=== PATIENT | female | born 1965 | race Caucasian/White ===

== ENCOUNTER 2017-10-13 05:48 | Observation (INO) | payer OTHER ==
[~2017-10-13] VITALS: Ht 157.5 cm; Wt 61.2 kg
--- NOTE | ~2017-10-13 | EKG ---
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
--- NOTE | ~2017-10-13 | PATH ---
[facility] [place] [address] PATHOLOGY RPT PROCEDURE Name: SHELLZION Room #: 449-I ISABELLE Banks#: [id number] Admission: 10/13/17 Date of : 65 Discharge: 10/14/17 Report #: [id number] Path Case #: [id number] [facility] Accession Number: [id number] . 01 Material submitted: . GALLBLADDER . 01 Clinical history: . Acalculous cholecystitis and cholelithiasis . 02 Diagnosis: Gallbladder, cholecystectomy: - Mild chronic cholecystitis. - Cholesterolosis. (IUV:10/14/2017) QMS/10/14/2017 . 02 Electronically signed: . Martha Sanchez MD, Pathologist NPI- [id number] . 01 Gross description: . Received in formalin labeled "ShellZion gallbladder," is a 4.7 x 3.4 x 0.9 cm, previously opened gallbladder with dark green, shiny serosal surfaces. Opening the gallbladder reveals a green, velvety mucosa with focal areas of bright- yellow highlights and an average wall thickness of 0.1 cm. Calculi are not present (upon filtration of the specimen container and contents ) and no masses are noted grossly. Account Group Supervisor sections from the body and fundus are submitted along the proximal margin cassette A1. (TSD; 10/13/2017) TOB/TOB . 02 Pathologist provided ICD-10: K81.1, K82.4 . 02 CPT . 317646 Performed at: [address], [place], [place] [id number] MD Yan Arredondo MD Phone: [phone] Performed at: [address] [id number] MD Martha Sanchez MD Phone: [phone]
--- NOTE | ~2017-10-13 | H ---
[facility] [place] [address] HISTORY AND PHYSICAL Name: ZION LAKE Room #: 449-I [facility] Mark Banks#: [id number] Admission: 10/13/17 Attend Phys: Pablo Sparks MD Discharge: 10/14/17 Date of : 65 Report #: [id number] THIS REPORT FOR: //name// CC: Pablo Mistry MD DATE OF SERVICE: 10/12/2017 PREOPERATIVE HISTORY AND PHYSICAL: PREOPERATIVE DIAGNOSIS: Acalculous cholecystitis, cholelithiasis. HISTORY OF PRESENT ILLNESS: The patient is a 52-year-old who for about a month has been having abdominal pain, bloating, and increased gas. A couple of weeks ago, the patient had a particularly bad episode. She was out eating at a steak house. Even before she finished, she started having pain in the upper abdomen going to her back. This was associated with bloating. Eventually, she also had diarrhea. The pain is sharp and squeezing in nature. Since two weeks ago, she has had several more episodes. Yesterday, the patient had pain during the night after eating yogurt and bananas. The pain can last up to 4 hours. She has had issues in the past 6 months after eating salads. She has had nausea. No vomiting. No jaundice. No fevers or chills. No family history of gallbladder trouble that she knows of. The patient was seen by Dr. Mistry and ultrasound was done on 10/09/2017. Ultrasound did not show any stones. The patient's common bile duct is normal. The patient was seen by me in the office after the ultrasound was done and the patient was recommended to undergo a HIDA scan. The patient had that done on 10/10/2017. When I reviewed it, there was no report yet, but it had been done. The EF was 28%. I spoke with the patient and she did have reproduction of pain. She is recommended to have gallbladder removed. The patient is here for laparoscopic cholecystectomy. PAST MEDICAL HISTORY: Has a history of psoriasis. History of asthma. The patient denies heart disease, diabetes, high blood pressure, kidney or liver disease, bleeding disorder or blood clot history. PAST SURGICAL HISTORY: [place] tooth in 1985. Ankle timo and wire in 2006. Deviated septum repair in 2006, endometrial ablation in 2012. MEDICATIONS: Symbicort and she is on Enstilar Foam, calcipotriene and Retin-A Micro gel for her psoriasis. ALLERGIES: She does not have any allergies. FAMILY HISTORY: There is stroke on both sides of the family. The father's side, there is breast cancer. Mother's side, there is colon cancer. Father [address] [address] HISTORY AND PHYSICAL Name: ZION LAKE Room #: 449-I ISABELLE Banks#: [id number] Admission: 10/13/17 Attend Phys: Pablo Sparks MD Discharge: 10/14/17 Date of : 65 Report #: [id number] at age 74, had blood clot and also peripheral artery disease. 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 Does not smoke. She drinks 4 beers on weekend. REVIEW OF SYSTEMS: No shortness of breath, chest pain, palpitation. No wheezes. No headache, blurred vision. No weakness, numbness. PHYSICAL EXAMINATION: GENERAL: The patient is well-nourished female, in no acute distress. HEENT: Sclerae is nonicteric. Pupils react to light. Extraocular muscles are intact. NECK: Supple, no masses. LUNGS: Clear to auscultation. No wheezes. HEART: Regular rate and rhythm. No murmur or gallop. ABDOMEN: Soft and there is localized tenderness that is mild to moderate in the right upper quadrant. No mass detected. No guarding or rigidity. EXTREMITIES: No cyanosis, clubbing or edema. IMPRESSION: The patient is a 52-year-old with abdominal pain that is classic gallbladder disease. This has been going on for about a month. She has fairly classic symptom. One episode that occurred while she was eating and all the symptoms are brought on by food. The patient does not have any gallstone on ultrasound. The patient did have a PIPIDA scan that did reproduce her pain. The patient is recommended to have her gallbladder removed. Laparoscopic cholecystectomy was discussed. Risk of bleeding, infection was discussed. Risk of common bile duct injury and bile leak was discussed. The patient understands the procedure and wishes to proceed. By: [id number] Pablo Sparks MD /nt
--- NOTE | ~2017-10-13 | O ---
[facility] [place] [address] OPERATIVE REPORT Name: ZION LAKE Room #: 449-I [facility] Mark Banks#: [id number] Admission: 10/13/17 Attend Phys: Pablo Sparks MD Discharge: 10/14/17 Date of : 65 Report #: [id number] THIS REPORT FOR: //name// CC: Pablo Mistry DATE OF SERVICE: 10/13/2017 PREOPERATIVE DIAGNOSIS: Acalculous cholecystitis with biliary dyskinesia. POSTOPERATIVE DIAGNOSIS: Acalculous cholecystitis with biliary dyskinesia. SURGEON: Pablo Sparks MD ANESTHESIA: General. PROCEDURE PERFORMED: Laparoscopic cholecystectomy with cholangiogram. FINDINGS: There was extensive adhesion surrounding the gallbladder. Cholesterol buildup identified in the gallbladder. Common bile duct is normal on operative cholangiogram. COMPLICATIONS: None. DESCRIPTION OF PROCEDURE: With the patient under general anesthesia, abdomen was prepped and draped in sterile fashion. Antibiotic was administered. Timeout was performed. A 0.25% Marcaine was used to anesthetize the skin infraumbilically. A 2 cm incision was made. The fascia was identified, grasped with hemostat. Fascia was then opened under visualization. A 0 Vicryl suture placed on the fascia for retraction. With the abdominal wall lifted anteriorly, Veress needle was then placed through peritoneum, abdominal cavity was insufflated with CO2. After creating pneumoperitoneum pressure of 15, an 11 mm trocar was placed into the pneumoperitoneum, no harm to the underlying tissue. Two 5 mm trocars were placed in right lower quadrant and a 5 mm trocar placed in right epigastrium. Some adhesions identified in the right colon. The gallbladder was covered by dense adhesion. The adhesions were taken down from the gallbladder. This is likely from chronic inflammation. The proximal gallbladder was then identified. A second grasper was placed on the proximal gallbladder. Peritoneum was dissected free from the gallbladder. The cystic artery and duct was isolated easily. The cystic duct and artery area was quite narrow and it was very easy to open up the triangle of Calot completely. A clip was placed in junction of the cystic duct to the gallbladder. An opening was made in the cystic duct. Cholangiogram catheter was placed. There was some sludgy material, cholesterol material in the cystic duct that I found. Cholangiogram catheter was then placed. There was a little bit of resistance and then the catheter went in. Fluoroscopic cholangiogram was obtained. [address] [address] OPERATIVE REPORT Name: ZION LAKE Room #: 449-I [facility] Mark Banks#: [id number] Admission: 10/13/17 Attend Phys: Pablo Sparks MD Discharge: 10/14/17 Date of : 65 Report #: [id number] bile duct filled out well. No filling defect was seen. The cholangiogram catheter was then removed. The proximal cystic duct was clipped x 2 and then divided. The artery was isolated easily, clipped x 2 proximally and 1 distally and then divided. Gallbladder was freed from the liver bed. Gallbladder was retrieved through the infraumbilical port. The gallbladder did contain extensive cholesterolosis. No other lesions identified. The liver bed was checked, hemostasis was obtained. In the lateral liver bed there was a little bit of bleeding from going a bit too deep in the liver. This was cauterized, hemostasis obtained. This occurred when the gallbladder was taken off. A Surgicel Fibrillar placed over here. No bleeding was identified. Irrigation was aspirated out. Trocars removed under visualization. The patient tolerated the procedure well. By: [id number] Pablo Sparks MD /nt
[~2017-10-13 05:48] MED LIST: MULTIVITAMINS PO; PROBIOTIC1 EAC1 PO
[2017-10-13 12:02] VITALS: BP 139/84
[2017-10-13 12:59] LABS: ALBUMIN 4.1 g/dL (3.4-5.0); DIRECT BILIRUBIN 0.1 mg/dL (<0.1-0.3); TOTAL BILIRUBIN 0.6 mg/dL (<0.1-1.0); TOTAL PROTEIN 6.9 g/dL (6.4-8.2)
[2017-10-13 15:30] VITALS: BP 123/76
[2017-10-13 16:00] VITALS: BP 117/74
[2017-10-13 17:30] VITALS: BP 121/70; BP 126/74
[2017-10-13 18:30] VITALS: BP 123/81
[2017-10-13 19:27] VITALS: BP 130/80
[2017-10-14 04:00] VITALS: BP 98/54
[2017-10-14 07:25] VITALS: BP 117/70
[2017-10-14] MEDS ORDERED: HYDROCODONE-AP1 EAC6 PO (13:01)
[2017-10-14 13:28] VITALS: BP 117/70
[2017-10-14 14:20] VITALS: BP 117/70
== END 2017-10-14 14:52 | disposition home or self-care (01) ==
LOC: OR 05:48 → TBA 05:49 → OR 14:38 → 4W 15:36 → OR 15:47 → ENTRNSPT 10-14 14:31 → EDTRNSPTSTS 10-14 14:33 → 4W 10-14 14:52
PROVIDERS: Surgery
DX: K81.9 Cholecystitis, unspecified (principal); K82.8 Other specified diseases of gallbladder
CPT/HCPCS: 10047; 50010; 50101; 50411; 50555; 50558; 51489; 53307; 53310; 55245; 55317; 56462; 56525; 56526; 56638; 62110; 62900; 70005

== ENCOUNTER → 2018-01-28 | Outpatient (CLI) | payer OTHER ==
[~2018-01-28] MED LIST changes: +HYDROCODONE-AP1 EAC6 PO
== END ==
LOC: RAD 01-26 02:17
DX: Z12.31 Encounter for screening mammogram for malignant neoplasm of breast (principal)

== ENCOUNTER → 2018-10-30 | Outpatient (CLI) | payer OTHER | LOC: CAT 09:05 | DX: Z13.6 Encounter for screening for cardiovascular disorders (principal); E78.00 Pure hypercholesterolemia, unspecified; I25.10 Atherosclerotic heart disease of native coronary artery without angina pectoris ==

== ENCOUNTER → 2019-11-29 | Outpatient (CLI) | payer OTHER | LOC: BC 07:57 | PROVIDERS: ATTEND Neuromusculoskeletal Medicine & OMM | DX: Z12.31 Encounter for screening mammogram for malignant neoplasm of breast (principal) ==

== ENCOUNTER → 2020-12-01 | Outpatient (CLI) | payer OTHER | LOC: BC 08:34 | PROVIDERS: ATTEND Obstetrics & Gynecology | DX: Z12.31 Encounter for screening mammogram for malignant neoplasm of breast (principal) ==